=== PATIENT | female | born 1995 | race Caucasian/White ===

== ENCOUNTER 2020-11-30 13:47 | Emergency (ER) | payer SELFPAY ==
[2020-11-30 14:59] LABS: HEMOGLOBIN 14.3 gm/dl (12.3-15.3); RED BLOOD COUNT 4.53 M/UL (4.00-5.10); WHITE BLOOD COUNT 11.1 K/UL (4.5-11.0)
[2020-11-30 15:18] LABS: BUN/CREATININE RATIO 17 (0-10)
[2020-11-30] MEDS ORDERED: CEFPODOXIME PR200 MG PO (15:32)
== END 2020-11-30 15:54 | disposition home or self-care (01) ==
LOC: ER1 13:47
PROVIDERS: Emergency Medicine
DX: N39.0 Urinary tract infection, site not specified (principal)
CPT/HCPCS: 80053; 81001; 84703; 85025; 87077; 87086; 87186; 96365; 99283; J0696

== ENCOUNTER → 2021-08-12 | Outpatient (CLI) | payer OTHER ==
[~2021-08-12] MED LIST: CEFPODOXIME PR200 MG PO
== END ==
LOC: US 14:17
DX: N63.14 Unspecified lump in the right breast, lower inner quadrant (principal)
CPT/HCPCS: 76641-RT